=== PATIENT | male | born 1985 | race Caucasian/White ===

== ENCOUNTER 2022-08-28 11:00 | Emergency (ER) | payer OTHER ==
[2022-08-28] MEDS ORDERED: Bacitracin Oint 1 GM U/D Packet TOP ONE (12:31)
[2022-08-28] MEDS ORDERED: Lidocaine 1% 5 ML VIAL INJECT ONE (12:31)
== END 2022-08-28 13:54 | disposition home or self-care (01) ==
LOC: JP.ED 11:00
DX: S61.211A Laceration without foreign body of left index finger without damage to nail, initial encounter (principal); W26.0XXA Contact with knife, initial encounter
CPT/HCPCS: 12002; 99282